=== PATIENT | female | born 1955 | race Caucasian/White ===

== ENCOUNTER 2020-02-15 11:04 | Outpatient (CLI) | payer MEDICARE, OTHER, SELFPAY ==
--- NOTE | ~2020-02-15 | US_ITS ---
US venous doppler LE RT DATE: 02/15/2020 11:51 INDICATION: Right lower leg swelling TECHNIQUE: Real-time and color flow imaging and Doppler analysis COMPARISON: 02/27/2012 venous duplex examination of the right lower extremity FINDINGS: The right greater saphenous vein is patent. There is spontaneous and phasic flow and normal augmentation and color flow signal and normal compression of the deep veins of the right lower extre mity. IMPRESSION: No evidence of deep venous thrombosis of right lower extremity Reviewed, dictated and finalized at [facility]. Reviewed, dictated and finalized at [facility].
== END 2020-02-15 11:05 | disposition home or self-care (01) ==
LOC: ANHIMG 11:19
PROVIDERS: PCP Student in an Organized Health Care Education/Training Program; Visit Provider Student in an Organized Health Care Education/Training Program
DX: R22.41 Localized swelling, mass and lump, right lower limb (principal)
CPT/HCPCS: 93971

== ENCOUNTER 2020-07-20 07:00 | Outpatient (NON) | payer MEDICARE, OTHER, SELFPAY ==
[2020-07-21 01:53] LABS: SARS-CoV-2 RNA PCR Negative
== END 2020-07-20 07:01 ==
PROVIDERS: PCP Student in an Organized Health Care Education/Training Program; Visit Provider Student in an Organized Health Care Education/Training Program
DX: Z20.828 Contact with and (suspected) exposure to other viral communicable diseases (principal); R53.83 Other fatigue; R52 Pain, unspecified
CPT/HCPCS: 87635; C9803; U0003

== ENCOUNTER 2022-10-14 12:57 | Outpatient (RCR) | payer MEDICARE, OTHER, SELFPAY ==
[2022-10-14 13:09] VITALS: BP 160/78; PULSE 70; RESP 20; TEMP 36.7; O2SAT 100
[2022-10-14] MEDS: ACETAMINOPHEN 325 MG TABLET 650 MG PO (13:20)
[2022-10-14] MEDS: diphenhydrAMINE HCl CAP 25 MG CAPSULE PO (13:21)
[2022-10-14] MEDS: FAMOTIDINE 20 MG TABLET PO (13:21)
[2022-10-14] MEDS: BEBTELOVIMAB 175 MG/2 ML VIAL IV PUSH (13:46)
[2022-10-14 14:27] VITALS: BP 142/64; PULSE 56; O2SAT 100
== END 2022-10-14 16:00 ==
LOC: AMCINF 12:57
PROVIDERS: PCP Family Medicine Sports Medicine; Visit Provider Internal Medicine Hematology & Oncology
DX: U07.1 COVID-19 (principal); I10 Essential (primary) hypertension; I25.10 Atherosclerotic heart disease of native coronary artery without angina pectoris; E11.9 Type 2 diabetes mellitus without complications
CPT/HCPCS: A9270; M0222; Q0222

== ENCOUNTER 2025-05-15 07:25 | Outpatient (RCR) | payer MEDICARE, OTHER, SELFPAY ==
[2025-04-18 12:30] VITALS: BMI 48.8
--- NOTE | 2025-05-10 14:21 | PCWOUND ---
WOCN NOTE Patient called wanting appointment right now due to swelling and pain in ankles. States she has been traveling all day today and took off her compression due to pain and swelling. I let patient know we do not have any open appointments today and that we can not help with pain. For the edema she should be doing as instructed previously- wear her compression, elevate legs when sitting, reducing salt intake and exercising as tolerated. Pain may be from the edema pushing on the tissue. She will need to contact her PCP for pain and may need further evaluation with a vascular surgeon for unresolved edema control. Asked if she wanted to keep her appointment for Thursday and she stated Yes.
== END 2025-07-03 13:29 | disposition home or self-care (01) ==
LOC: ANHWOC 07:25
PROVIDERS: PCP Family Medicine; Visit Provider Family Medicine
DX: I89.0 Lymphedema, not elsewhere classified (principal); L97.929 Non-pressure chronic ulcer of unspecified part of left lower leg with unspecified severity; L97.919 Non-pressure chronic ulcer of unspecified part of right lower leg with unspecified severity
CPT/HCPCS: 29581; 99212; 99214; G0463